=== PATIENT | male | born 2000 | race Caucasian/White ===

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

== ENCOUNTER 2020-04-08 19:09 | Emergency (ER) | payer BC, OTHER ==
[2020-04-08] MEDS ORDERED: Sodium Chloride 0.9% 10 ML Syringe FLUSH PRN (19:13)
[2020-04-08] MEDS ORDERED: Sodium Chloride 0.9% 2.5 ML Syringe FLUSH PRN (19:13)
--- NOTE | 2020-04-08 19:52 | EDM.PDOCBH ---
<Logan Camacho - Last Filed: 04/09/20 01:24> ED HPI GENERAL MEDICAL PROBLEM - General Chief Complaint: Behavioral/Psych Stated Complaint: MEDICATION INGESTION (IBU) Time Seen by Provider: 04/08/20 19:28 - Related Data Allergies Allergy/AdvReac Type Severity Reaction Status Date / Time Sulfa (Sulfonamide Allergy Hives Verified 04/08/20 19:35 Antibiotics) Home Meds: Home Meds Fluticasone/Salmeterol [Advair 100-50] 1 puff INH BID 09/08/18 [History] Albuterol Sulfate [Albuterol Sulfate Hfa] 2 puff INH Q6HR PRN 04/08/20 [History] ED ROS GENERAL - Review of Systems Review Of Systems: Comprehensive ROS is negative, except as noted in HPI. ED EXAM, BEHAVIORAL HEALTH - Physical Exam Exam: See Below Text/Narrative:: Physical exam the HPI COURSE, BEHAVIORAL HEALTH COMP - Course Re-Assessment/Re-Exam: 2152 hrs. After the patient had an episode of violent vomiting he rested and received some Zofran. Upon termination of his N-acetylcysteine infusion he complained of sharp burning pain in his chest which later moved down into his lower abdomen. He also had transient itching of his skin but no rash developed and then it went away on its own. He received Benadryl and Solu-Medrol in case of an allergic reaction. Her EKG and troponin were ordered. EKG showed a sinus rhythm with a heart rate of 73 and an axis of 86. There was a late transition to R wave in a little early repolarization in the precordial leads. This was compared to 7:51 PM and it was essentially unchanged. Impression no acute injury 2248 patient is calm and resting after his episode of chest pain. Chest x-ray was unremarkable. Patient is getting a GI cocktail. I discussed with Dr. Schmitt at [facility] he that he had reacted to Mucomyst. But a Tylenol level so low I thought it best that they consider checking liver functions before we decide whether to proceed. 12:23 AM poison control pharmacist called and said to resume the N-acetylcys teine protocol. They felt anaphylactoid reaction would most likely not be repeated and was due to the volume and concentration given an initial bolus. Departure - Departure Time of Disposition: 01:23 Disposition: DC/Tfer to Acute Hospital 02 Condition: Good Clinical Impression: Intentional acetaminophen overdose, Suicidal ideation - Discharge Information Referrals: Abbe Omer MD [Primary Care Provider] - Forms: ED Department Discharge Additional Instructions: Transferred to [place]. <Ovi Humphreys E - Last Filed: 04/09/20 10:01> ED HPI GENERAL MEDICAL PROBLEM - General Source of Information: Reports: Patient History Limitations: Reports: No Limitations - History of Present Illness INITIAL COMMENTS - FREE TEXT/NARRATIVE: HISTORY AND PHYSICAL: History of present illness: Patient is a 19 old male who presents to the emergency room with a Tylenol overdose. Last evening around 7 or 8:00 PM the patient states he took about 60 tablets of acetaminophen 500mg tabs. He had told a coworker about the overdose, his intent was for self-harm. He states he is going through a lot at home, his child recently had taken his first steps and he was not able to be a part of that and has some issues with law enforcement. Patient states he told a friend of his overdose and then "passed out". He slept all last evening and most of the day today. The friend called the mom and informed her of Mega's OD. Patient had several bouts of vomiting, believes there was blood in his initial emesis - but now "its just bile". He woke up this evening and now feels better. Mom states that she had attempted to get a hold of the patient all day today and when she finally got a hold of him she brought him to the emergency room for evaluation. Patient is tearful and states he was suicidal, but now he's just sad and frustrated with the consequences of his actions. Patient denies any fever, chills, headache, change in vision, syncope or near syncope. Denies any chest pain, back pain, shortness of breath or cough. Denies any diarrhea, constipation or dysuria. Has not noted any blood in urine or stool. Patient has been eating and drinking appropriately. Review of systems: As per history of present illness and below otherwise all systems reviewed and negative. Past medical history: As per history of present illness and as reviewed below otherwise noncontributory. Surgical history: As per history of present illness and as reviewed below otherwise noncontributory. Social history: See social history for further information Family history: As per history of present illness and as reviewed below otherwise noncontributory. Physical exam: General: Well developed and well nourished 19-year-old male. Alert and oriented. Patient is tearful, nontoxic in appearance and in no acute distress. Mom has accompanied patient, here at bedside. HEENT: Atraumatic, normocephalic, pupils equal and reactive bilaterally, negative for conjunctival pallor or scleral icterus, mucous membranes moist, TMs normal bilaterally, throat clear, neck supple, nontender, trachea midline. No drooling or trismus noted. No meningeal signs. No hot potato voice noted. Lungs: Clear to auscultation, breath sounds equal bilaterally, chest nontender. Heart: S1S2, regular rate and rhythm without overt murmur Abdomen: Soft, nondistended, nontender. Negative for masses or costovertebral tenderness. Pelvis: Stable nontender. Skin: Intact, warm, dry. No lesions or rashes noted. Extremities: Atraumatic, moves all extremities per self without difficulty or deficits, negative for cords or calf pain. Neurovascular unremarkable. Neuro: Awake, alert, oriented. Cranial nerves II through XII unremarkable. Cerebellum unremarkable. Motor and sensory unremarkable throughout. Exam nonfocal. Notes: I did speak with the poison control hotline, they recommended initiating IV acetylcysteine immediately without having the lab value back. Lab results are pending. This was ordered based on wt/protocol. Initially spoke with Dr. White about this patient, he would prefer this patient to be transferred as he will need a mental health evaluation. I did speak with Dr. Juarez, psychiatrist on-call at [facility] in [place], he states that there is bed availability and he is agreeable to accepting this patient. Patient is medically stable although should have his labs redrawn. I did speak with the ER physician, Dr. Schmitt, he is aware of patient and patient's report of taking large amount of acetaminophen. Patient is suitable for ground transfer. A emergency hold has been placed on the patient due to his intentional overdose. Patient is sitting up talking eating a meal tray. Shortly after the patient has an episode of vomiting and coughing. He states that he now has some chest pain. He received the initial dose of acetylcysteine. Dr Camacho has assumed care of this patient at 2145, he has ordered some medications and will continue to monitor. Diagnostics: CBC, CMP, EKG, Acetaminophen, Salicylate, DRUG screen, UA, CXR Therapeutics: NS, Acetylcysteine Impression: Intentional acetaminophen overdose Suicidal ideation Plan: Transfer to [facility] Definitive disposition and diagnosis as appropriate pending reevaluation and review of above. abdomen Pain Score (Numeric/FACES): 5 Past Medical History HEENT History: Reports: None Cardiovascular History: Reports: None Respiratory History: Reports: Asthma Gastrointestinal History: Reports: None Other Gastrointestinal History: acid reflux Genitourinary History: Reports: None Musculoskeletal History: Reports: None Neurological History: Reports: None Psychiatric History: Reports: Anxiety Endocrine/Metabolic History: Reports: None Hematologic History: Reports: None Immunologic History: Reports: None Oncologic (Cancer) History: Reports: None Dermatologic History: Reports: None - Past Surgical History HEENT Surgical History: Reports: None Cardiovascular Surgical History: Reports: None GI Surgical History: Reports: None Male Surgical History: Reports: None Musculoskeletal Surgical History: Reports: None Social & Family History - Family History Family Medical History: Noncontributory Cardiac: Reports: Heart Murmur, Hypertension - Caffeine Use Caffeine Use: Reports: None ED ROS GENERAL - Review of Systems Review Of Systems: Comprehensive ROS is negative, except as noted in HPI. ED EXAM, BEHAVIORAL HEALTH - Physical Exam Exam: See Below (See dictation) COURSE, BEHAVIORAL HEALTH COMP - Course Vital Signs: Last Vital Signs Temp 96.6 F L 04/08/20 19:25 Pulse 59 L 04/09/20 00:45 Resp 16 04/09/20 00:45 BP 106/50 L 04/09/20 00:45 Pulse Ox 95 04/09/20 00:45 Orders, Labs, Meds: Active Orders 24 hr Category Date Time Status Saline Lock Insert [OM.PC] Stat Oth 04/08/20 19:14 Ordered Laboratory Tests 04/08/20 04/08/20 04/08/20 Range/Units 19:38 19:38 19:38 WBC 10.81 (4.0-11.0) K/uL RBC 5.08 (4.50-5.90) M/uL Hgb 16.5 (13.0-17.0) g/dL Hct 46.3 (38.0-50.0) % MCV 91.1 (80.0-98.0) fL MCH 32.5 H (27.0-32.0) pg MCHC 35.6 (31.0-37.0) g/dL RDW Std Deviation 42.7 (28.0-62.0) fl RDW Coeff of Geno 13 (11.0-15.0) % Plt Count 196 (150-400) K/uL MPV 9.10 (7.40-12.00) fL Neut % (Auto) 80.9 H (48.0-80.0) % Lymph % (Auto) 14.3 L (16.0-40.0) % [place] % (Auto) 3.4 (0.0-15.0) % Eos % (Auto) 1.1 (0.0-7.0) % Baso % (Auto) 0.3 (0.0-1.5) % Neut # (Auto) 8.7 H (1.4-5.7) K/uL Lymph # (Auto) 1.6 (0.6-2.4) K/uL [place] # (Auto) 0.4 (0.0-0.8) K/uL Eos # (Auto) 0.1 (0.0-0.7) K/uL Baso # (Auto) 0.0 (0.0-0.1) K/uL Nucleated RBC % 0.0 /100WBC Nucleated RBCs # 0 K/uL INR 1.16 Sodium 135 L (136-148) mmol/L Potassium 3.5 (3.5-5.1) mmol/L Chloride 100 (98-107) mmol/L Carbon Dioxide 21.6 (21.0-32.0) mmol/L BUN 15 (7.0-18.0) mg/dL Creatinine 1.2 (0.8-1.3) mg/dL Est Cr Clr Drug Dosing 89.63 mL/min Estimated GFR (MDRD) > 60.0 ml/min Glucose 115 H (74-106) mg/dL POC Glucose (60-110) mg/dL Calcium 8.5 (8.5-10.1) mg/dL Total Bilirubin 1.7 H (0.2-1.0) mg/dL AST 36 (15-37) IU/L ALT 52 (14-63) IU/L Alkaline Phosphatase 84 (46-116) U/L Troponin I (0.000-0.056) ng/mL Total Protein 7.8 (6.4-8.2) g/dL Albumin 4.5 (3.4-5.0) g/dL Globulin 3.3 (2.6-4.0) g/dL Albumin/Globulin Ratio 1.4 (0.9-1.6) TSH 3rd Generation 0.31 L (0.52-4.13) uIU/mL Urine Color Urine Appearance Urine pH (5.0-8.0) Ur Specific [place] (1.001-1.035) Urine Protein (NEGATIVE) mg/dL Urine Glucose (UA) (NEGATIVE) mg/dL Urine Ketones (NEGATIVE) mg/dL Urine Occult Blood (NEGATIVE) Urine Nitrite (NEGATIVE) Urine Bilirubin (NEGATIVE) Urine Urobilinogen (<2.0) EU/dL Ur Leukocyte Esterase (NEGATIVE) Salicylates <0.2 (0-20) mg/dL Urine Opiates Screen (NEGATIVE) Ur Oxycodone Screen (NEGATIVE) Urine Methadone Screen (NEGATIVE) Acetaminophen 12.5 ug/mL Ur Barbiturates Screen (NEGATIVE) Ur Phencyclidine Scrn (NEGATIVE) Ur Amphetamine Screen (NEGATIVE) U Methamphetamines Scrn (NEGATIVE) U Benzodiazepines Scrn (NEGATIVE) U Cocaine Metab Screen (NEGATIVE) U Marijuana (THC) Screen (NEGATIVE) Ethyl Alcohol mg/dL 04/08/20 04/08/20 04/08/20 Range/Units 19:38 20:27 20:50 WBC (4.0-11.0) K/uL RBC (4.50-5.90) M/uL Hgb (13.0-17.0) g/dL Hct (38.0-50.0) % MCV (80.0-98.0) fL MCH (27.0-32.0) pg MCHC (31.0-37.0) g/dL RDW Std Deviation (28.0-62.0) fl RDW Coeff of Geno (11.0-15.0) % Plt Count (150-400) K/uL MPV (7.40-12.00) fL Neut % (Auto) (48.0-80.0) % Lymph % (Auto) (16.0-40.0) % [place] % (Auto) (0.0-15.0) % Eos % (Auto) (0.0-7.0) % Baso % (Auto) (0.0-1.5) % Neut # (Auto) (1.4-5.7) K/uL Lymph # (Auto) (0.6-2.4) K/uL [place] # (Auto) (0.0-0.8) K/uL Eos # (Auto) (0.0-0.7) K/uL Baso # (Auto) (0.0-0.1) K/uL Nucleated RBC % /100WBC Nucleated RBCs # K/uL INR Sodium (136-148) mmol/L Potassium (3.5-5.1) mmol/L Chloride (98-107) mmol/L Carbon Dioxide (21.0-32.0) mmol/L BUN (7.0-18.0) mg/dL Creatinine (0.8-1.3) mg/dL Est Cr Clr Drug Dosing mL/min Estimated GFR (MDRD) ml/min Glucose (74-106) mg/dL POC Glucose 159 H (60-110) mg/dL Calcium (8.5-10.1) mg/dL Total Bilirubin (0.2-1.0) mg/dL AST (15-37) IU/L ALT (14-63) IU/L Alkaline Phosphatase (46-116) U/L Troponin I (0.000-0.056) ng/mL Total Protein (6.4-8.2) g/dL Albumin (3.4-5.0) g/dL Globulin (2.6-4.0) g/dL Albumin/Globulin Ratio (0.9-1.6) TSH 3rd Generation (0.52-4.13) uIU/mL Urine Color YELLOW Urine Appearance CLEAR Urine pH 6.0 (5.0-8.0) Ur Specific [place] 1.025 (1.001-1.035) Urine Protein NEGATIVE (NEGATIVE) mg/dL Urine Glucose (UA) 100 H (NEGATIVE) mg/dL Urine Ketones 40 H (NEGATIVE) mg/dL Urine Occult Blood NEGATIVE (NEGATIVE) Urine Nitrite NEGATIVE (NEGATIVE) Urine Bilirubin SMALL H (NEGATIVE) Urine Urobilinogen 1.0 (<2.0) EU/dL Ur Leukocyte Esterase NEGATIVE (NEGATIVE) Salicylates (0-20) mg/dL Urine Opiates Screen (NEGATIVE) Ur Oxycodone Screen (NEGATIVE) Urine Methadone Screen (NEGATIVE) Acetaminophen ug/mL Ur Barbiturates Screen (NEGATIVE) Ur Phencyclidine Scrn (NEGATIVE) Ur Amphetamine Screen (NEGATIVE) U Methamphetamines Scrn (NEGATIVE) U Benzodiazepines Scrn (NEGATIVE) U Cocaine Metab Screen (NEGATIVE) U Marijuana (THC) Screen (NEGATIVE) Ethyl Alcohol < 3.0 mg/dL 04/08/20 04/08/20 04/09/20 Range/Units 20:50 21:46 00:57 WBC (4.0-11.0) K/uL RBC (4.50-5.90) M/uL Hgb (13.0-17.0) g/dL Hct (38.0-50.0) % MCV (80.0-98.0) fL MCH (27.0-32.0) pg MCHC (31.0-37.0) g/dL RDW Std Deviation (28.0-62.0) fl RDW Coeff of Geno (11.0-15.0) % Plt Count (150-400) K/uL MPV (7.40-12.00) fL Neut % (Auto) (48.0-80.0) % Lymph % (Auto) (16.0-40.0) % [place] % (Auto) (0.0-15.0) % Eos % (Auto) (0.0-7.0) % Baso % (Auto) (0.0-1.5) % Neut # (Auto) (1.4-5.7) K/uL Lymph # (Auto) (0.6-2.4) K/uL [place] # (Auto) (0.0-0.8) K/uL Eos # (Auto) (0.0-0.7) K/uL Baso # (Auto) (0.0-0.1) K/uL Nucleated RBC % /100WBC Nucleated RBCs # K/uL INR Sodium (136-148) mmol/L Potassium (3.5-5.1) mmol/L Chloride (98-107) mmol/L Carbon Dioxide (21.0-32.0) mmol/L BUN (7.0-18.0) mg/dL Creatinine (0.8-1.3) mg/dL Est Cr Clr Drug Dosing mL/min Estimated GFR (MDRD) ml/min Glucose (74-106) mg/dL POC Glucose 167 H (60-110) mg/dL Calcium (8.5-10.1) mg/dL Total Bilirubin (0.2-1.0) mg/dL AST (15-37) IU/L ALT (14-63) IU/L Alkaline Phosphatase (46-116) U/L Troponin I < 0.050 (0.000-0.056) ng/mL Total Protein (6.4-8.2) g/dL Albumin (3.4-5.0) g/dL Globulin (2.6-4.0) g/dL Albumin/Globulin Ratio (0.9-1.6) TSH 3rd Generation (0.52-4.13) uIU/mL Urine Color Urine Appearance Urine pH (5.0-8.0) Ur Specific [place] (1.001-1.035) Urine Protein (NEGATIVE) mg/dL Urine Glucose (UA) (NEGATIVE) mg/dL Urine Ketones (NEGATIVE) mg/dL Urine Occult Blood (NEGATIVE) Urine Nitrite (NEGATIVE) Urine Bilirubin (NEGATIVE) Urine Urobilinogen (<2.0) EU/dL Ur Leukocyte Esterase (NEGATIVE) Salicylates (0-20) mg/dL Urine Opiates Screen NEGATIVE (NEGATIVE) Ur Oxycodone Screen NEGATIVE (NEGATIVE) Urine Methadone Screen NEGATIVE (NEGATIVE) Acetaminophen ug/mL Ur Barbiturates Screen NEGATIVE (NEGATIVE) Ur Phencyclidine Scrn NEGATIVE (NEGATIVE) Ur Amphetamine Screen NEGATIVE (NEGATIVE) U Methamphetamines Scrn NEGATIVE (NEGATIVE) U Benzodiazepines Scrn NEGATIVE (NEGATIVE) U Cocaine Metab Screen NEGATIVE (NEGATIVE) U Marijuana (THC) Screen NEGATIVE (NEGATIVE) Ethyl Alcohol mg/dL Medications Discontinued Medications Generic Name Dose Route Start Last Admin Trade Name Freq PRN Reason Stop Dose Admin Al Hydroxide/Mg Hydroxide 15 0 ml 04/08/20 22:47 04/08/20 22:54 ml/ Metoclopramide HCl 5 mg/ PO 04/08/20 22:48 1 each Lidocaine HCl 5 ml ONETIME ONE Administration Diphenhydramine HCl 25 mg 04/08/20 21:35 04/08/20 21:38 Benadryl IVPUSH 04/08/20 21:36 25 mg ONETIME ONE Administration Diphenhydramine HCl Confirm 04/08/20 21:35 04/08/20 21:45 Benadryl Administered 04/08/20 21:36 Not Given Dose 50 mg .ROUTE .STK-MED ONE Acetylcysteine 9,600 mg/ 248 mls @ 248 mls/hr 04/08/20 19:55 04/08/20 20:23 Dextrose/Water IV 04/08/20 19:56 248 mls/hr STAT STA Administration Protocol Sodium Chloride 1,000 mls @ 999 mls/hr 04/08/20 19:59 04/08/20 20:20 Normal Saline IV 04/08/20 20:59 999 mls/hr STAT ONE Administration Acetylcysteine 3,200 mg/ 516 mls @ 129 mls/hr 04/09/20 00:15 04/09/20 00:55 Dextrose/Water IV 04/09/20 00:16 129 mls/hr ONETIME ONE Administration Protocol Methylprednisolone Sodium Succinate 125 mg 04/08/20 21:38 04/08/20 21:43 Solu-Medrol IV 04/08/20 21:39 125 mg ONETIME ONE Administration Methylprednisolone Sodium Succinate Confirm 04/08/20 21:41 04/08/20 21:45 Solu-Medrol Administered 04/08/20 21:42 Not Given Dose 125 mg .ROUTE .STK-MED ONE Ondansetron HCl 4 mg 04/08/20 21:02 04/08/20 21:08 Zofran IVPUSH 04/08/20 21:03 4 mg ONETIME ONE Administration Ondansetron HCl Confirm 04/08/20 21:03 04/08/20 21:08 Zofran Administered 04/08/20 21:04 Not Given Dose 4 mg .ROUTE .STK-MED ONE Sodium Chloride 10 ml 04/08/20 19:13 Saline Flush FLUSH ASDIRECTED PRN Keep Vein Open Sodium Chloride 2.5 ml 04/08/20 19:13 Saline Flush FLUSH ASDIRECTED PRN Keep Vein Open Sepsis Event Note (ED) - Evaluation Sepsis Screening Result: No Definite Risk - Focused Exam Vital Signs: Vital Signs Pulse Resp BP Pulse Ox 04/09/20 00:45 59 L 16 106/50 L 95 04/09/20 00:15 65 16 114/53 L 95 04/08/20 22:45 53 L 16 120/66 96 04/08/20 22:30 66 16 121/64 96 04/08/20 22:15 63 16 120/63 96 04/08/20 22:00 58 L 16 123/70 97 - My Orders Last 24 Hours: My Active Orders 04/08/20 19:14 Saline Lock Insert [OM.PC] Stat - Assessment/Plan Last 24 Hours: My Active Orders 04/08/20 19:14 Saline Lock Insert [OM.PC] Stat
[2020-04-08] MEDS ORDERED: ACETYLCYSTEINE IV STA ×2 (19:55)
[2020-04-08] MEDS ORDERED: DEXTROSE 5% IV STA ×2 (19:55)
[2020-04-08] MEDS ORDERED: WATER IV STA ×2 (19:55)
[2020-04-08] MEDS ORDERED: Sodium Chloride 0.9% 1,000 ML IV ONE (19:59)
[2020-04-08 20:23] LABS: BLOOD UREA NITROGEN,BUN 15 mg/dL (7.0-18.0); CARBON DIOXIDE,CO2 21.6 mmol/L (21.0-32.0); CHLORIDE,CL 100 mmol/L (98-107); GLUCOSE RANDOM 115 mg/dL (74-106); POTASSIUM,K 3.5 mmol/L (3.5-5.1); SODIUM,NA 135 mmol/L (136-148)
[2020-04-08 20:25] LABS: ACETAMINOPHEN 12.5 ug/mL
--- NOTE | 2020-04-08 20:45 | CR ---
INDICATION: Pain, shortness of breath. Overdose on acetaminophen last night. TECHNIQUE: Chest 1 view COMPARISON: Chest radiograph 10/29/2017. FINDINGS: No focal consolidation, pleural effusion, or pneumothorax. Normal heart size and pulmonary vascularity. The bones are unremarkable. IMPRESSION: No acute cardiopulmonary findings. Dictated by Alejandra Ho MD @ Apr 08 2020 8:42PM Signed by Dr. Alejandra Ho @ Apr 08 2020 8:44PM
[2020-04-08] MEDS ORDERED: Ondansetron 4 MG/2 ML SDV IVPUSH ONE (21:02)
[2020-04-08] MEDS ORDERED: Ondansetron 4 MG/2 ML SDV ONE (21:03)
[2020-04-08] MEDS ORDERED: diphenhydrAMINE 50 MG/ML SDV IVPUSH ONE (21:35)
[2020-04-08] MEDS ORDERED: diphenhydrAMINE 50 MG/ML SDV ONE (21:35)
[2020-04-08] MEDS ORDERED: methylPREDNISolone Sodium Succinate 125 MG/2 ML SDV IV ONE (21:38)
[2020-04-08] MEDS ORDERED: methylPREDNISolone Sodium Succinate 125 MG/2 ML SDV ONE (21:41)
--- NOTE | 2020-04-08 22:05 | CR ---
Chest: Portable view of the chest was obtained. Comparison: No prior chest imaging is available. Heart size and mediastinum are normal. Lungs are clear with no acute parenchymal change. Bony structures are unremarkable. Impression: 1. Nothing acute is seen on portable chest x-ray. Diagnostic code #1 This report was dictated in MDT
[2020-04-08] MEDS ORDERED: Alum Hydrox/Mag Hydrox/Simeth 15 ML, Metoclopramide 5 MG, Lidocaine 2% 5 ML PO ONE ×3 (22:47)
[2020-04-09] MEDS ORDERED: DEXTROSE 5% IV ONE ×2 (00:15)
[2020-04-09] MEDS ORDERED: WATER IV ONE ×2 (00:15)
[2020-04-09] MEDS ORDERED: ACETYLCYSTEINE IV ONE ×2 (00:15)
[2020-04-09 01:07] VITALS: BP 106/50; PULSE 59
== END 2020-04-09 01:12 ==
LOC: MW.ED 19:09
DX: T39.1X2A Poisoning by 4-Aminophenol derivatives, intentional self-harm, initial encounter (principal); J45.909 Unspecified asthma, uncomplicated; Z88.2 Allergy status to sulfonamides; Z79.899 Other long term (current) drug therapy
CPT/HCPCS: 36415; 71045; 80053; 80305; 80307; 81003; 82962; 84443; 84484; 85025; 85610; 93005; 96365; 96375; 99285; A9270; J0132; J1200; J2405; J2930; J7030; J7060

== ENCOUNTER 2020-11-12 20:34 | Emergency (ER) | payer BC ==
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
[2020-11-12] MEDS ORDERED: Diphtheria,Pertussis(Acell),Tetanus Vaccine 0.5 ML Syringe IM ONE (21:01)
[2020-11-12] MEDS ORDERED: Bacitracin Oint 1 GM U/D Packet TOP ONE (21:01)
[2020-11-12] MEDS ORDERED: Ondansetron 4 MG Tab.DIS PO ONE (21:02)
[2020-11-12] MEDS ORDERED: Acetaminophen/HYDROcodone 325-5 MG Tab PO ONE (21:02)
--- NOTE | 2020-11-12 21:43 | CR ---
INDICATION: Left hip pain. TECHNIQUE: AP pelvis and 2 views of the left hip. FINDINGS: No bone, joint, or soft tissue abnormality the pelvis or left hip. Normal exam. Dictated by Kevin Gibson MD @ Nov 12 2020 9:41PM Signed by Dr. Kevin Gibson @ Nov 12 2020 9:42PM
[2020-11-13 02:45] VITALS: BP 116/53; PULSE 88
== END 2020-11-12 22:00 | disposition home or self-care (01) ==
LOC: MW.ED 20:34
DX: S40.212A Abrasion of left shoulder, initial encounter (principal); S70.212A Abrasion, left hip, initial encounter; S50.812A Abrasion of left forearm, initial encounter; J45.909 Unspecified asthma, uncomplicated; Z88.2 Allergy status to sulfonamides; Z23 Encounter for immunization; Z91.030 Bee allergy status; V49.9XXA Car occupant (driver) (passenger) injured in unspecified traffic accident, initial encounter
CPT/HCPCS: 73502; 90471; 90715; 99284; A9270

== ENCOUNTER 2022-03-10 07:26 | Emergency (ER) | payer BC, OTHER ==
[2022-03-10] MEDS ORDERED: Sodium Chloride 0.9% 2.5 ML Syringe FLUSH PRN (07:39)
[2022-03-10] MEDS ORDERED: fentaNYL 50 MCG/ML SDV IVPUSH ONE (07:39)
[2022-03-10] MEDS ORDERED: Ketorolac 30 MG/ML SDV IVPUSH ONE (07:39)
[2022-03-10] MEDS ORDERED: Sodium Chloride 0.9% 10 ML Syringe FLUSH PRN (07:39)
[2022-03-10] MEDS ORDERED: Ondansetron 4 MG/2 ML SDV IVPUSH ONE (07:39)
[2022-03-10] MEDS ORDERED: Sodium Chloride 0.9% 1,000 ML IV ONE (07:39)
[2022-03-10 08:09] LABS: CARBON DIOXIDE,CO2 22.6 mmol/L (21.0-32.0); POTASSIUM,K 3.9 mmol/L (3.5-5.1)
[2022-03-10 10:36] VITALS: BP 103/40; PULSE 89
== END 2022-03-10 10:18 | disposition home or self-care (01) ==
LOC: MW.ED 07:26
DX: R07.9 Chest pain, unspecified (principal); Z88.2 Allergy status to sulfonamides; Z91.048 Other nonmedicinal substance allergy status
CPT/HCPCS: 36415; 71048; 80053; 81001; 83690; 85025; 85379; 93005; 96374; 96375; 99285; J1885; J2405; J3010; J3490; J7030; 93010; 99284

== ENCOUNTER 2025-01-23 23:35 | Emergency (ER) | payer BC, OTHER | END 2025-01-24 00:17 | disposition left against medical advice (07) | LOC: MW.ED 23:35 | DX: Z53.21 Procedure and treatment not carried out due to patient leaving prior to being seen by health care provider (principal) ==